=== PATIENT | female | born 1990 | race Caucasian/White ===

== ENCOUNTER 2017-02-05 19:45 | Emergency (ER) | payer MEDICAID ==
[~2017-02-05] VITALS: Ht 170.2 cm; Wt 77.3 kg
[~2017-02-05 19:45] MED LIST: IBU800 M1 PO; MOTRIN 600600 MG/TAB PO; NO HOME MEDICATIONS; PERCOCET 325 MG1 TA2 PO; PRENATAL1 TA7 PO
[2017-02-05 20:01] VITALS: BP 124/63; TEMP 98.8
[2017-02-05] MEDS ORDERED: AMOXICILLIN 50500 MG PO (21:55)
[2017-02-05 22:00] VITALS: PULSE 94
== END 2017-02-05 22:01 | disposition home or self-care (01) ==
LOC: COL.ER 19:45
DX: K08.89 Other specified disorders of teeth and supporting structures (principal); K03.81 Cracked tooth; F17.210 Nicotine dependence, cigarettes, uncomplicated